=== PATIENT | male | born 1970 | race Caucasian/White ===

== ENCOUNTER 2018-07-02 11:12 | Emergency (ER) | END 2018-07-02 18:44 | disposition home or self-care (01) ==

== ENCOUNTER 2019-06-12 19:28 | Emergency (ER) | payer SELFPAY ==
[~2019-06-12] VITALS: Ht 167.6 cm; Wt 73.8 kg
[~2019-06-12 19:28] MED LIST: CEPH-443 PO; METF-849 PO; SULF1TAB31 PO
[2019-06-12 19:31] VITALS: BP 149/100; PULSE 99; RESP 20; Ht 167.6 cm; Wt 73.8 kg
== END 2019-06-12 22:18 | disposition home or self-care (01) ==
LOC: E/R 19:28
DX: F41.9 Anxiety disorder, unspecified (principal)
CPT/HCPCS: 71045; 80053; 83880; 84484; 85025; 85610; 93005